=== PATIENT | female | born 1965 | race Hispanic/Latino ===

== ENCOUNTER 2019-04-20 10:16 | Day surgery (SDC) | payer OTHER ==
[2019-04-19 15:54] VITALS: BP 152/75
[2019-04-19 16:20] LABS: BASOPHILS % (AUTO) 1.1 % (0.0-5.0); EOSINOPHILS % (AUTO) 4.3 % (0.0-8.0); HEMATOCRIT 38.5 % (36-48); LYMPHOCYTES % (AUTO) 36.4 % (21.0-51.0); MEAN CORPUSCULAR HEMOGLOBIN 29.6 pg (27.0-33.0); MEAN CORPUSCULAR HGB CONC 34.3 g/dL (32.0-36.0); MEAN CORPUSCULAR VOLUME 86.2 fL (79-99); MONOCYTES % (AUTO) 6.7 % (3.0-13.0); NEUTROPHILS % (AUTO) 51.5 % (40.0-77.0); PLATELET COUNT (AUTO) 271 K/uL (130-400); RED BLOOD CELL COUNT(AUTO) 4.47 MIL/uL (4.00-5.50); RED CELL DISTRIBUTION WIDTH 13.4 % (11.0-15.5); WHITE BLOOD COUNT (AUTO) 5.1 K/uL (4.8-10.8)
[2019-04-19 16:31] LABS: CREATININE 0.7 mg/dL (0.5-1.5); POTASSIUM 4.2 mmol/L (3.5-5.1)
[~2019-04-20] VITALS: Ht 160 cm; Wt 77.7 kg
[2019-04-20] VITALS (15 sets, daily range): BP systolic 91–145; BP diastolic 49–79
[2019-04-20] MEDS: CEFAZOLIN SODIUM 1 GM VIAL IVP ONE ×2 (08:00→12:30)
[~2019-04-20 10:16] MED LIST: LISI10TA7 PO; NAPR-1023 PO; QVAR IH
[2019-04-20] MEDS ORDERED: LACTATED RINGERS 1000ML 1,000 ML IV ONE (11:10)
[2019-04-20] MEDS ORDERED: CEFAZOLIN SODIUM 1 GM VIAL ONE (11:10)
[2019-04-20] MEDS ORDERED: DEXAMETHASONE SOD PHOSPHATE 10MG/ML 1ML VIAL ONE (11:26)
[2019-04-20] MEDS ORDERED: GLYCOPYRROLATE 1 MG/5 ML SYRINGE ONE (11:26)
[2019-04-20] MEDS ORDERED: LIDOCAINE PF 2% 5ML ABBOJECT ONE (11:26)
[2019-04-20] MEDS ORDERED: SUCCINYLCHOLINE 200MG/10ML SYR ONE (11:26)
[2019-04-20] MEDS ORDERED: FENTANYL CITRATE PF 50 MCG/1 ML 2ML VIAL ONE (11:27)
[2019-04-20] MEDS ORDERED: ONDANSETRON HCL 4 MG/2 ML VIAL ONE (11:27)
[2019-04-20] MEDS ORDERED: ROCURONIUM 10MG/1ML SYR 10 MG/ML ML ONE (11:27)
[2019-04-20] MEDS ORDERED: PROPOFOL 10 MG/ML 20ML VIAL IV ONE (11:27)
[2019-04-20] MEDS ORDERED: NEOSTIGMINE 5MG/5ML SYR IV ONE (11:27)
[2019-04-20] MEDS ORDERED: MIDAZOLAM HCL 1 MG/ML 2ML VIAL ONE (11:27)
[2019-04-20] MEDS ORDERED: ROPIVACAINE 0.5% 5MG/ML 30ML IJ ONE (11:30)
[2019-04-20] MEDS ORDERED: CEPH500B PO (14:35)
[2019-04-20] MEDS ORDERED: HYDR-4457 PO (14:35)
[2019-04-20] MEDS ORDERED: NAPR-1023 PO (14:35)
--- NOTE | 2019-04-20 16:05 | NUR ---
PT LEFT VIA WHEELCHAIR IN PVT CAR WITH DAUGHTER AND SPOUSE. RX SCRIPT AND D/C INSTRUCTION GIVEN TO DAUGHTER. PT. HAD SLING TO THE LEFT SHOULDER IS ON THE PATIENT. NO COMPLICATION UPON D/C PT. STABLE
== END 2019-04-20 16:10 ==
LOC: DAH 10:16
PROVIDERS: ATTEND Orthopaedic Surgery
DX: M75.102 Unspecified rotator cuff tear or rupture of left shoulder, not specified as traumatic (principal); M75.22 Bicipital tendinitis, left shoulder; M75.42 Impingement syndrome of left shoulder; I10 Essential (primary) hypertension; J45.909 Unspecified asthma, uncomplicated; Z90.710 Acquired absence of both cervix and uterus; Z79.899 Other long term (current) drug therapy; Z82.49 Family history of ischemic heart disease and other diseases of the circulatory system; Z83.3 Family history of diabetes mellitus
CPT/HCPCS: 29824; 29826; 29827; 36415; 64415; 76942; 80048; 85025; A4215; A4221; A4222; A4223; A4649 ×8; A4663; A4930 ×2; A5120; A6204; A6260; C1713 ×2; J0330; J0690; J1100; J2001; J2250; J2405; J2704; J2710; J2795; J3010; J3490; J7030; J7120